=== PATIENT | male | born 1955 | race Caucasian/White ===

== ENCOUNTER 2020-11-12 07:42 | Day surgery (SDC) | payer BC ==
[2020-11-12] MEDS ORDERED: Lidocaine 1% PF 2 ML SDV INJECT ONE (07:43)
[2020-11-12] MEDS ORDERED: Lactated Ringers 1,000 ML IV ONE (07:43)
[2020-11-12] MEDS ORDERED: Propofol 200 MG/20 ML SDV IV ONE (07:43)
[2020-11-12] MEDS ORDERED: Sodium Chloride 0.9% 10 ML Syringe FLUSH PRN (07:45)
[2020-11-12] MEDS ORDERED: Lactated Ringers 1,000 ML IV SCH (07:45)
--- NOTE | 2020-11-12 09:34 | PCM.HPR ---
H & P Addendum review - H & P Addendum Review Date of Original H & P: 10/22/20 Date Reviewed: 11/12/20 Time Reviewed: 09:34 Patient was Examined: No Changes
--- NOTE | 2020-11-12 09:59 | PCM.OPNOTE ---
- General Post-Op/Procedure Note Date of Surgery/Procedure: 11/12/20 Operative Procedure(s): Colonoscopy Findings: Sig Tics Pre Op Diagnosis: Hx Polyps Post-Op Diagnosis: Same Anesthesia Technique: MAC Primary Surgeon: Aguila Hernadez Complications: None Condition: Good
--- NOTE | 2020-11-12 11:21 | OR ---
DATE OF OPERATION: 11/12/2020 SURGEON: Aguila Hernadez MD PREOPERATIVE DIAGNOSIS: History of colon polyps. POSTOPERATIVE DIAGNOSIS: Sigmoid diverticulosis. PROCEDURE: Colonoscopy. ANESTHESIA: IV sedation. DESCRIPTION OF PROCEDURE: The patient was brought to the procedure room where he was placed on his left side and IV sedation administered. Digital rectal exam was performed, which was normal. Colonoscope was inserted and advanced to the level of the cecum with some difficulty getting around the hepatic flexure requiring pressure on the abdomen. Cecum was reached and confirmed by identifying the appendiceal lumen and ileocecal valve. Prep was good and surfaces were well visualized. Upon withdrawing the scope, the ascending, transverse, and descending colon were normal in appearance. The sigmoid colon had several medium-sized diverticula present. Rectum was normal and retroflexion was normal. Air was removed and the scope withdrawn. The patient tolerated the procedure well and returned to recovery in stable condition. Recommend surveillance colonoscopy again in 5 years. /[id number] KAREN/KIRA
[2020-11-12 15:28] VITALS: BP 138/90; PULSE 68
== END 2020-11-12 10:55 | disposition home or self-care (01) ==
LOC: FB.SDS 07:42
PROVIDERS: ATTEND Surgery
DX: Z12.11 Encounter for screening for malignant neoplasm of colon (principal); K57.30 Diverticulosis of large intestine without perforation or abscess without bleeding; Z88.0 Allergy status to penicillin; I10 Essential (primary) hypertension; L30.9 Dermatitis, unspecified; N52.9 Male erectile dysfunction, unspecified; E78.5 Hyperlipidemia, unspecified; Z86.010 Personal history of colon polyps
CPT/HCPCS: J2704; J7120